=== PATIENT | male | born 1950 | race Caucasian/White ===

== ENCOUNTER → 2016-05-05 | Outpatient (CLI) | payer OTHER, MEDICARE ==
--- NOTE | 2016-05-05 18:18 | DX ---
Lumbar spine upright AP and lateral 1334 hours. History: Followup fusion. Findings: Comparison to January 24, 2016. Pedicle screws and paraspinal rods and now seen from L3 t hrough S1. Disk replacement material has been added at L3-L4 and L4-L5. There is stable bony fusion a cross the L5-S1 disk. Hardware is in good position and alignment. There are no subluxations. Laminect ariel is suspected from L3 through S1. There is stable mild to moderate intervertebral disk space narro wing at L1-L2 and L2-L3 with small marginal osteophytes. There is decrease in dextroscoliosis of the mid lumbar spine measures 13 degrees (previously 18 degrees). Impression: 1. Good alignment of fusion from L3 through S1. 2. Decrease in dextroscoliosis since preoperative study.
== END ==
LOC: FIMAGING 13:25
PROVIDERS: ATTEND Orthopaedic Surgery Orthopaedic Surgery of the Spine
DX: Z09 Encounter for follow-up examination after completed treatment for conditions other than malignant neoplasm (principal); Z98.1 Arthrodesis status

== ENCOUNTER → 2016-07-02 | Outpatient (CLI) | payer OTHER, MEDICARE | LOC: FIMAGING 09:55 | PROVIDERS: ATTEND Orthopaedic Surgery Orthopaedic Surgery of the Spine | DX: Z09 Encounter for follow-up examination after completed treatment for conditions other than malignant neoplasm (principal); Z98.1 Arthrodesis status; M99.73 Connective tissue and disc stenosis of intervertebral foramina of lumbar region ==

== ENCOUNTER → 2016-09-30 | Outpatient (CLI) | payer OTHER, MEDICARE | LOC: FIMAGING 07:42 | PROVIDERS: ATTEND Orthopaedic Surgery Orthopaedic Surgery of the Spine | DX: Z09 Encounter for follow-up examination after completed treatment for conditions other than malignant neoplasm (principal); Z98.1 Arthrodesis status ==

== ENCOUNTER → 2017-01-02 | Outpatient (CLI) | payer OTHER, MEDICARE | LOC: FLAB 09:14 | PROVIDERS: ATTEND Orthopaedic Surgery Orthopaedic Surgery of the Spine | DX: Z98.1 Arthrodesis status (principal) ==

== ENCOUNTER → 2017-04-07 | Outpatient (CLI) | payer OTHER, MEDICARE | LOC: FIMAGING 10:09 | PROVIDERS: ATTEND Orthopaedic Surgery Orthopaedic Surgery of the Spine | DX: Z09 Encounter for follow-up examination after completed treatment for conditions other than malignant neoplasm (principal); Z98.1 Arthrodesis status ==

== ENCOUNTER 2017-05-11 11:04 | Day surgery (SDC) | payer OTHER, MEDICARE ==
[2017-05-11] MEDS ORDERED: LR 1,000 ML IV ONE (11:36)
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
[2017-05-11] MEDS ORDERED: INDOMETHACIN 50 MG SUPP PR PRN (12:37)
--- NOTE | 2017-05-11 12:37 | PDGENHP ---
History & Physical Chief Complaint: abdominal pain, heartburn History of Present Illness: 66 year old male presents for evalution of epigastric abdominal pain and heartburn. Pertinent Past, Social, Family History: PMHx: Lyme, hypothyroidism, asthma Relevant Physical Exam: HEENT: anicteric. CV; RRR +s1s2. Lungs: CTAB No w/r/ r. Abd: soft, nt, + bs. No guarding or rebound. Cardiorespiratory Assessment: ASA 2
[2017-05-11] MEDS ORDERED: PROPOFOL 200 MG/20 ML VIAL ONE ×2 (12:38)
[2017-05-11] MEDS ORDERED: NS 500 ML IV SCH (12:45)
[2017-05-11] MEDS ORDERED: fentaNYL 100 MCG/2 ML INJ IVP PRN (12:54)
[2017-05-11] MEDS ORDERED: NALOXONE HCL 0.4 MG/ML INJ IVP PRN (12:54)
--- NOTE | 2017-05-11 13:05 | POSTANESTH ---
Post Anesthetic Evaluation Cardiovascular Status: Normal, Stable Respiratory Status: Normal, Stable Level of Consciousness/Mental Status: Can Participate in Eval Pain Control: Adequate, Prn Tx Ordered Nausea/Vomiting Control: Adequate, Prn Tx Ordered Complications Possibly Related to Anesthesia: None Noted
--- NOTE | 2017-05-11 13:37 | GIREPORT ---
[facility] - Endoscopy Department Patient Name: Lacho Streeter Procedure Date: 05/11/2017 12:23 PM Patient Type: Outpatient Attending MD/ ER Physician: Lai Esqueda MD Procedure: Upper GI endoscopy Indications: Epigastric abdominal pain, Heartburn Patient Profile: 66 year old male presents for evaluation of epigastric abdominal pain/heartburn. Providers: Lai Esqueda MD Medicines: Monitored Anesthesia Care Complications: No immediate complications. Estimated blood loss: Minimal. Description of Procedure: After obtaining informed consent, the endoscope was passed under direct vision. Throughout the procedure, the patient's blood pressure, pulse, and oxygen saturations were monitored continuously. The Endoscope was intro duced through the mouth, and advanced to the second part of duodenum. [facility] er GI endoscopy was accomplished without difficulty. The patient tolerated th e procedure well. Findings: The Z-line was irregular. Biopsies were taken with a cold forceps for histology. Biopsies were taken with a cold forceps in the middle third of the esop hagus for histology. A large hiatal hernia was present. Patchy mildly erythematous mucosa was found in the gastric body and in the gastric antrum. Biopsies were taken with a cold forceps for histology. The examined duodenum was normal. Biopsies for histology were taken wit h a cold forceps for evaluation of celiac disease. Estimated Blood Loss: Estimated blood loss was minimal. Post Op Diagnosis: - Z-line irregular. Biopsied. - Large hiatal hernia. - Erythematous mucosa in the gastric body and antrum. Biopsied. - Normal examined duodenum. Biopsied. - Biopsies were taken with a cold forceps for histology in the middle t hird of the esophagus. - Etiology? No obvious cause of symptoms seen. Try trial of PPI? Will d efer to PCP. Recommendation: - Discharge patient to home (with escort). - Resume previous diet. - Continue present medications. - Await pathology results. - Thank you for allowing me to participate in the care of your patient. Attending Participation: I personally performed the entire procedure. Lai Esqueda MD Lai Esqueda MD 05/11/2017 1:37:07 PM This report has been signed electronicallyLai Esqueda MD Number of Addenda: 0 Note Initiated On: 05/11/2017 12:23 PM [email or web address]
[2017-05-11 13:48] VITALS: BP 137/99; PULSE 70; RESP 14; O2SAT 93
[2017-05-11 13:51] VITALS: TEMP 98.1
== END 2017-05-11 14:20 | disposition home or self-care (01) ==
LOC: FSGY 11:04
PROVIDERS: ATTEND Internal Medicine Gastroenterology
PROC: 0DB68ZX Excision of Stomach, Via Natural or Artificial Opening Endoscopic, Diagnostic (ICD-10-PCS; principal; 2017-05-11 12:30)
PROC: 0DB98ZX Excision of Duodenum, Via Natural or Artificial Opening Endoscopic, Diagnostic (ICD-10-PCS; principal; 2017-05-11 12:30)
PROC: 0DB58ZX Excision of Esophagus, Via Natural or Artificial Opening Endoscopic, Diagnostic (ICD-10-PCS; principal; 2017-05-11 12:30)
DX: K44.9 Diaphragmatic hernia without obstruction or gangrene (principal); G89.4 Chronic pain syndrome; F41.9 Anxiety disorder, unspecified; G47.33 Obstructive sleep apnea (adult) (pediatric); M25.50 Pain in unspecified joint; M54.30 Sciatica, unspecified side; M75.81 Other shoulder lesions, right shoulder; M75.82 Other shoulder lesions, left shoulder; I10 Essential (primary) hypertension; E03.9 Hypothyroidism, unspecified; Z87.891 Personal history of nicotine dependence
CPT/HCPCS: J2704

== ENCOUNTER → 2017-06-10 | Outpatient (CLI) | payer OTHER, MEDICARE | LOC: GIMAGING 10:58 | PROVIDERS: ATTEND Family Medicine | DX: R06.02 Shortness of breath (principal); M95.8 Other specified acquired deformities of musculoskeletal system | CPT/HCPCS: 71046-PO ==

== ENCOUNTER → 2017-07-22 | Outpatient (CLI) | payer OTHER, MEDICARE | LOC: GIMAGING 07:51 | PROVIDERS: ATTEND Family Medicine | DX: R91.1 Solitary pulmonary nodule (principal); K44.9 Diaphragmatic hernia without obstruction or gangrene; G47.33 Obstructive sleep apnea (adult) (pediatric) | CPT/HCPCS: 71046-PO ==

== ENCOUNTER → 2017-07-29 | Outpatient (CLI) | payer OTHER, MEDICARE | LOC: BHFA 13:30 | PROVIDERS: ATTEND Internal Medicine Cardiovascular Disease | DX: R00.2 Palpitations (principal); I10 Essential (primary) hypertension ==

== ENCOUNTER → 2017-08-10 | Outpatient (CLI) | payer OTHER, MEDICARE | LOC: BHFA 14:00 | PROVIDERS: ATTEND Internal Medicine Interventional Cardiology | DX: R94.39 Abnormal result of other cardiovascular function study (principal); R00.2 Palpitations | CPT/HCPCS: 78452; 93017; A9500; J2785 ==

== ENCOUNTER → 2017-10-26 | Outpatient (CLI) | payer OTHER, MEDICARE | LOC: FIMAGING 12:52 | PROVIDERS: ATTEND Family Medicine | DX: Z13.820 Encounter for screening for osteoporosis (principal); M85.89 Other specified disorders of bone density and structure, multiple sites; E03.9 Hypothyroidism, unspecified; Z98.890 Other specified postprocedural states; Z79.890 Hormone replacement therapy ==

== ENCOUNTER → 2018-09-27 | Outpatient (CLI) | payer OTHER, MEDICARE | LOC: GIMAGING 17:30 ==